=== PATIENT | male | born 1980 | race Caucasian/White ===

== ENCOUNTER 2022-04-08 14:04 | Emergency (ER) | payer BC, SELFPAY ==
[2022-04-08 14:05] VITALS: BP 179/99; PULSE 84; RESP 14; TEMP 36.7; O2SAT 97; BMI 29.2
[2022-04-08 14:08] VITALS: BP 179/99; PULSE 84; RESP 15; O2SAT 98
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
[2022-04-08 15:29] VITALS: BP 159/77; PULSE 86; RESP 15; O2SAT 99
== END 2022-04-08 15:30 | disposition home or self-care (01) ==
PROVIDERS: Emergency Provider Emergency Medicine; PCP Family Medicine; Visit Provider Emergency Medicine
DX: Z04.1 Encounter for examination and observation following transport accident (principal)
CPT/HCPCS: 99283